=== PATIENT | male | born 2000 | race Caucasian/White ===

== ENCOUNTER 2019-04-08 00:35 | Emergency (ER) | payer SELFPAY ==
--- NOTE | 2019-04-08 00:45 | EDM.PDOCBH ---
ED HPI GENERAL MEDICAL PROBLEM - General Chief Complaint: Behavioral/Psych Stated Complaint: [employer] Time Seen by Provider: 04/08/19 00:40 Source of Information: Reports: Patient, Police History Limitations: Reports: Intoxication - History of Present Illness INITIAL COMMENTS - FREE TEXT/NARRATIVE: The patient was brought in by [facility] for medical clearance. They found him walking outside with his shirt off. He does admit to drinking. He walked in to the ER. He has no complaints. He does have some abrasions to the left forearm. He has no medical problems. Onset: Gradual Duration: Hour(s): Improves with: Reports: None Worsens with: Reports: None Associated Symptoms: Reports: No Other Symptoms ED ROS GENERAL - Review of Systems Review Of Systems: See Below Constitutional: Reports: No Symptoms HEENT: Reports: No Symptoms Respiratory: Reports: No Symptoms Cardiovascular: Reports: No Symptoms Endocrine: Reports: No Symptoms GI/Abdominal: Reports: No Symptoms : Reports: No Symptoms Musculoskeletal: Reports: Other (Abrasion left arm) ED EXAM, BEHAVIORAL HEALTH - Physical Exam Exam: See Below Exam Limited By: Intoxication General Appearance: Alert, No Apparent Distress Ears: Normal External Exam Nose: Normal Inspection Head: Atraumatic, Normocephalic Neck: Normal Inspection Respiratory/Chest: No Respiratory Distress, Lungs Clear, Normal Breath Sounds Cardiovascular: Regular Rate, Rhythm, No Edema, No Murmur GI/Abdominal: Soft, Non-Tender, No Organomegaly, No Mass Extremities: Other (Abrasion to left hand and forearm) Neurological: Alert, No Motor/Sensory Deficits Departure - Departure Time of Disposition: 00:45 Disposition: Home, Self-Care 01 Condition: Good Clinical Impression: Alcohol intoxication Qualifiers: Complication of substance-induced condition: uncomplicated Qualified Code(s): F10.920 - Alcohol use, unspecified with intoxication, uncomplicated Abrasion of left arm Qualifiers: Encounter type: initial encounter Qualified Code(s): S40.812A - Abrasion of left upper arm, initial encounter - Discharge Information *PRESCRIPTION DRUG MONITORING PROGRAM REVIEWED*: Not Applicable *COPY OF PRESCRIPTION DRUG MONITORING REPORT IN PATIENT TRICIA: Not Applicable Forms: ED Department Discharge Additional Instructions: A medical screening was done and you are medically cleared to go to the [facility] or home. Please return if you are worse.
== END 2019-04-08 00:45 | disposition home or self-care (01) ==
LOC: JD.ED 00:35
CPT/HCPCS: 99282; 99283